=== PATIENT | female | born 1945 | race Hispanic/Latino ===

== ENCOUNTER → 2017-09-09 | Outpatient (CLI) | payer OTHER, MEDICARE ==
[~2017-09-09] MED LIST: ATOR10TA69 PO; CLON0.1T PO; DILT240C3 PO; DIVA500T52 PO; FOSI40TA4 PO; FURO20TA4 PO; HYDR25TA PO; IBUP-2353 PO; LEVO25TA54 PO; NITR0.4T50 SL; RISP1TAB26 PO; XALA2.5OS OU
== END | disposition home or self-care (01) ==
LOC: RAH 08:20
PROVIDERS: ATTEND Internal Medicine
DX: K43.9 Ventral hernia without obstruction or gangrene (principal); K42.9 Umbilical hernia without obstruction or gangrene
CPT/HCPCS: 74150

== ENCOUNTER → 2018-12-05 | Outpatient (CLI) | payer OTHER, MEDICARE ==
[~2018-12-05] MED LIST changes: -FOSI40TA4 PO; +FOSI40TA5 PO
== END | disposition home or self-care (01) ==
LOC: OIH 10:33
PROVIDERS: ATTEND Internal Medicine
DX: M72.2 Plantar fascial fibromatosis (principal); M89.9 Disorder of bone, unspecified

== ENCOUNTER → 2023-07-04 | Outpatient (CLI) | payer OTHER ==
[~2023-07-04] MED LIST changes: -DILT240C3 PO; +DILT240C97 PO; -FOSI40TA5 PO; +FOSI40TA71 PO; -IBUP-2353 PO; +IBUP-2784 PO; -RISP1TAB26 PO; +RISP1TAB98 PO
== END | disposition home or self-care (01) ==
LOC: OIH 07:34
PROVIDERS: ATTEND Internal Medicine Interventional Cardiology
DX: Z13.6 Encounter for screening for cardiovascular disorders (principal)
CPT/HCPCS: 75571

== ENCOUNTER 2023-07-16 08:20 | Day surgery (SDC) | payer MEDICARE ==
[2023-07-15 13:17] LABS: BASOPHILS # (AUTO) 0.02 K/uL (0.00-0.20); BASOPHILS % (AUTO) 0.3 % (0.0-5.0); EOSINOPHILS # (AUTO) 0.05 K/uL (0.00-0.70); EOSINOPHILS % (AUTO) 0.7 % (0.0-8.0); HEMATOCRIT 41.9 % (36-48); IMMATURE GRANULOCYTE ABSOLUTE 0.03 K/uL (0-1); LYMPHOCYTES # (AUTO) 2.2 K/uL (1.0-4.8); LYMPHOCYTES % (AUTO) 28.5 % (21.0-51.0); MEAN CORPUSCULAR HEMOGLOBIN 31.9 pg (27.0-33.0); MEAN CORPUSCULAR HGB CONC 32.7 g/dL (32.0-36.0); MEAN CORPUSCULAR VOLUME 97.4 fL (79-99); MONOCYTES # (AUTO) 0.6 K/uL (0.1-1.0); MONOCYTES % (AUTO) 7.9 % (3.0-13.0); NEUTROPHILS # (AUTO) 4.7 K/uL (1.8-7.7); NEUTROPHILS % (AUTO) 62.2 % (40.0-77.0); PLATELET COUNT (AUTO) 315 K/uL (130-400); RED CELL DISTRIBUTION WIDTH 13.6 % (11.0-15.5); WHITE BLOOD COUNT (AUTO) 7.6 K/uL (4.8-10.8)
[2023-07-15 13:28] LABS: INR <= 0.93 (0.85-1.15); PROTHROMBIN TIME 10.5 SEC (9.6-11.6)
[2023-07-15 13:30] LABS: PARTIAL THROMBOPLASTIN TIME 28.2 SEC (26.3-35.5)
[2023-07-15 13:32] LABS: CREATININE 0.8 mg/dL (0.5-1.0); POTASSIUM 5.4 mmol/L (3.5-5.1)
[2023-07-15 13:49] LABS: B-TYPE NATRIURETIC PEPTIDE 80 pg/mL (0-100)
[2023-07-15 14:16] VITALS: BP 140/62; PULSE 60; RESP 18
[2023-07-16] VITALS (11 sets, daily range): BP systolic 132–157; BP diastolic 53–87; PULSE 56–71; RESP 14–16
[~2023-07-16] VITALS: Ht 152.4 cm; Wt 87.5 kg
[~2023-07-16 08:20] MED LIST changes: +AMLO-257 PO; -ATOR10TA69 PO; +ATOR40TA71 PO; +CARV6.25 PO; -CLON0.1T PO; +DILT180C77 PO; -DILT240C97 PO; +DIVA-78 PO; -DIVA500T52 PO; -FURO20TA4 PO; -HYDR25TA PO; -IBUP-2784 PO; +ISOS30TA92 PO; -LEVO25TA54 PO; +LEVO50CA4 PO; +RISP-30 PO; -RISP1TAB98 PO; -XALA2.5OS OU
[2023-07-16] MEDS: 0.9%NACL 1000ML 1,000 ML IV ONE (09:37)
[2023-07-16] MEDS ORDERED: VERAPAMIL HCL 2.5 MG/ML VIAL ONE (12:17)
[2023-07-16] MEDS ORDERED: MIDAZOLAM HCL 1 MG/ML 2ML VIAL ONE (12:17)
[2023-07-16] MEDS ORDERED: IOHEXOL 350 MG/ML 100ML INFUS..BTL IV ONE ×2 (12:17→13:28)
[2023-07-16] MEDS ORDERED: BIVALIRUDIN 250 MG/VIAL IV ONE (12:17)
[2023-07-16] MEDS ORDERED: FENTANYL CITRATE PF 50 MCG/1 ML 2ML VIAL ONE (12:17)
[2023-07-16] MEDS ORDERED: LIDOCAINE HCL 400MG/20ML VIAL ONE (12:17)
[2023-07-16] MEDS ORDERED: IOHEXOL-350 50ML VIAL IV ONE (12:17)
[2023-07-16] MEDS ORDERED: HEPARIN 10,000 UNIT/10ML (1,000 UNIT/ML) VIAL ONE (12:18)
[2023-07-16] MEDS ORDERED: NITROGLYCERIN 50MG VIAL ONE (12:18)
[2023-07-16] MEDS ORDERED: ATROPINE 1MG SYG IVP ONE (13:25)
[2023-07-16] MEDS ORDERED: NITROGLYCERIN 4.1 GM SPRAY TL ONE (13:40)
[2023-07-16] MEDS ORDERED: ACETAMINOPHEN WITH CODEINE 1 TAB TAB PO PRN (14:00)
[2023-07-16] MEDS ORDERED: 0.9%NACL 1000ML 1,000 ML IV SCH (14:00)
== END 2023-07-16 18:30 | disposition home or self-care (01) ==
LOC: DAH 08:20
PROVIDERS: ATTEND Internal Medicine Interventional Cardiology
DX: I25.119 Atherosclerotic heart disease of native coronary artery with unspecified angina pectoris (principal); G60.8 Other hereditary and idiopathic neuropathies; I45.19 Other right bundle-branch block; I11.0 Hypertensive heart disease with heart failure; I50.32 Chronic diastolic (congestive) heart failure; E66.01 Morbid (severe) obesity due to excess calories; E78.2 Mixed hyperlipidemia; Z79.899 Other long term (current) drug therapy; Z79.01 Long term (current) use of anticoagulants; Z98.890 Other specified postprocedural states; Z68.36 Body mass index [BMI] 36.0-36.9, adult; Z79.890 Hormone replacement therapy
CPT/HCPCS: 80048; 83880; 85025; 85610; 85730; 36415 ×2; 71045; 93005; 93458; 84132; 85347 ×2; C1887 ×6; C1894 ×3; C1769 ×2; C1760; C1753; J3010; J3490 ×3; J7030; J1644 ×2; J2250; Q9967 ×3; A4215; A4335; A4222; A4221; A4663; A4216; A4606; Q9965 ×3; A4223 ×3; A4554; 96360; 96361; 99156; 99157; J0461; J0583